=== PATIENT | male | born 1995 | race Caucasian/White ===

== ENCOUNTER 2017-09-15 18:44 | Emergency (ER) | payer OTHER ==
[2017-09-15] MEDS: IBUPROFEN 600 MG TAB PO (22:13)
[2017-09-15] MEDS: HYDROCODONE/APAP (5/325) TAB PO (22:14)
[2017-09-15] MEDS: ONDANSETRON (ODT) 4 MG TAB ODT (22:14)
[2017-09-15] MEDS: ACETAMINOPHEN 325 MG TAB PO (23:30)
== END 2017-09-16 00:18 | disposition home or self-care (01) ==
LOC: FTE 09-16 00:18
DX: R19.7 Diarrhea, unspecified (principal); R11.0 Nausea; R50.9 Fever, unspecified; R52 Pain, unspecified
CPT/HCPCS: 87400; 99283

== ENCOUNTER 2018-04-02 14:14 | Emergency (ER) | payer OTHER | END 2018-04-02 16:17 | disposition home or self-care (01) | LOC: FTE 14:14 | DX: H10.33 Unspecified acute conjunctivitis, bilateral (principal) | CPT/HCPCS: 99283; Z7502 ==